=== PATIENT | female | born 1995 | race Two or more races ===

== ENCOUNTER 2024-01-25 15:53 | Emergency (ER) | payer MEDICAID ==
[~2024-01-25] VITALS: Ht 167.6 cm; Wt 106.9 kg
[2024-01-25 16:04] VITALS: BP 125/87; PULSE 104; RESP 18; O2SAT 94
[2024-01-25 17:24] LABS: Urine Bacteria MANY /hpf (None Seen); Urine Blood Negative /uL (Negative); Urine Clarity Ex.Turbid (Clear); Urine Color Dark-Brown (Yellow); Urine Mucus FEW (None Seen); Urine Protein, UAD 1+ (Negative); Urine Specific Gravity 1.036 (1.001-1.035); Urine Urobilinogen Normal (Negative); Urine WBC 171 /hpf (0 - 5); Urine WBC Clumps PRESENT /hpf (None Seen)
[2024-01-25] MEDS ORDERED: BACDST PO (17:41)
[2024-01-25] MEDS ORDERED: NYST150P2 XX (17:41)
[2024-01-25] MEDS: NYSTATIN TOPICAL CREAM 15GM TOP ONE (17:46)
[2024-01-25] MEDS: cefTRIAXone SOD 1,000 MG VL IM ONE (17:47)
== END 2024-01-25 18:05 | disposition home or self-care (01) ==
LOC: ER 15:53
DX: N39.0 Urinary tract infection, site not specified (principal); R10.2 Pelvic and perineal pain; B37.9 Candidiasis, unspecified; E11.9 Type 2 diabetes mellitus without complications
CPT/HCPCS: 36415; 81001; 82962; 84702; 96372; 99283; J0696